=== PATIENT | female | born 1975 | race Caucasian/White ===

== ENCOUNTER → 2019-01-22 10:26 | Outpatient (CLI) | payer OTHER, SELFPAY ==
--- NOTE | 2019-01-22 | DI.MG.S_ITS ---
BILATERAL DIGITAL SCREENING MAMMOGRAM 3D/2D WITH CAD: 01/22/2019 CLINICAL: Routine screening. Comparison is made to exams dated: 12/25/2017 mammogram and 11/28/2016 mammogram - [facility]. There are scattered fibroglandular elements in both breasts. Current study was also evaluated with a Computer Aided Detection (CAD) system. No significant masses, calcifications, or other findings are seen in either breast. There has been no significant interval change. IMPRESSION: NEGATIVE There is no mammographic evidence of malignancy. A 1 year screening mammogram is recommended. This exam was interpreted at Station ID: [id number]. NOTE: For mammograms, a report in lay terms will be sent to the patient. Approximately 15% of breast malignancies will not be visualized mammographically. In the management of a palpable breast mass, a negative mammogram must not discourage biopsy of a clinically suspicious lesion. Electronically Signed By: Leonel field/jason:01/22/2019 13:21:22 letter sent: Normal Exam ACR BI-RADS Category 1: Negative [id number]
== END ==
PROVIDERS: PCP Family Medicine; Visit Provider Family Medicine
DX: Z12.31 Encounter for screening mammogram for malignant neoplasm of breast (principal)
CPT/HCPCS: 77063; 77067

== ENCOUNTER 2019-05-26 17:37 | Emergency (ER) | payer OTHER, SELFPAY ==
[2019-05-26 17:46] VITALS: BP 136/65; PULSE 82; RESP 17; TEMP 36.8; O2SAT 96
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
[2019-05-26] MEDS: ACETAMINOPHEN 325 MG TABLET 975 MG PO (18:49)
[2019-05-26 19:23] VITALS: BP 124/75; PULSE 75; RESP 16; TEMP 36.7; O2SAT 96
== END 2019-05-26 19:21 | disposition home or self-care (01) ==
PROVIDERS: Emergency Provider Emergency Medicine; PCP Family Medicine
DX: S16.1XXA Strain of muscle, fascia and tendon at neck level, initial encounter (principal); V89.2XXA Person injured in unspecified motor-vehicle accident, traffic, initial encounter
CPT/HCPCS: 71046; 72125; 99282; 99284

== ENCOUNTER → 2020-06-26 10:43 | Outpatient (CLI) | payer OTHER, SELFPAY ==
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
== END ==
PROVIDERS: PCP Family Medicine; Referring Provider Family Medicine; Visit Provider Chiropractor
DX: M16.0 Bilateral primary osteoarthritis of hip (principal); Z97.5 Presence of (intrauterine) contraceptive device
CPT/HCPCS: 73521

== ENCOUNTER → 2021-11-13 13:29 | Outpatient (CLI) | payer OTHER, SELFPAY ==
[2021-11-13 13:57] LABS: COVID19 -Nasal RAPID Negative (Negative)
== END ==
PROVIDERS: PCP Family Medicine; Visit Provider Physician Assistant
DX: Z20.822 Contact with and (suspected) exposure to COVID-19 (principal)
CPT/HCPCS: 87635

== ENCOUNTER → 2023-01-28 11:02 | Outpatient (CLI) | payer OTHER, SELFPAY ==
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
== END ==
PROVIDERS: PCP Physician Assistant; Referring Provider Physician Assistant; Visit Provider Physician Assistant
DX: M25.461 Effusion, right knee (principal); S83.271A Complex tear of lateral meniscus, current injury, right knee, initial encounter; S83.241A Other tear of medial meniscus, current injury, right knee, initial encounter; M71.21 Synovial cyst of popliteal space [Baker], right knee; M25.561 Pain in right knee
CPT/HCPCS: 73721

== ENCOUNTER 2023-03-01 20:16 | Inpatient (IN) | payer OTHER, MEDICAID, SELFPAY ==
[2023-03-01 20:17] VITALS: BP 123/95; PULSE 125; RESP 15; TEMP 36.3; O2SAT 97; BMI 40.4
[2023-03-01] MEDS: ONDANSETRON 4 MG/2 ML INJ IV (20:31)
[2023-03-01 21:02] LABS: Add Manual Diff / Slide Review NO; Alanine Aminotransferase 55 IU/L (<35); Albumin 4.5 g/dL (3.5-5.0); Albumin Globulin Ratio 1.3 (1.0-2.8); Alkaline Phosphatase 69 U/L (38-126); Aspartate Aminotransferase 37 IU/L (14-36); BUN Creatinine Ratio 22.5 (6-22); Basophils Absolute Auto 100 /uL (0-100); Basophils Percent Auto 0.5 % (0-2); Bilirubin Total 0.8 mg/dL (0.2-1.3); Blood Urea Nitrogen 16 mg/dL (7-17); Calcium 8.8 mg/dL (8.4-10.2); Chloride 105 mmol/L (98-107); Eosinophils Absolute Auto 0 /uL (0-450); Eosinophils Percent Auto 0.2 % (2-4); Estimated Glomerular Filt Rate > 60 mL/min (>60); Globulin 3.4 g/dL (1.7-4.1); Glucose 154 mg/dL (70-100); HEMOLYSIS < 15 (0-50); Hematocrit 47.4 % (36-46); Hemoglobin 16.1 g/dL (12.0-16.0); Lipase 69 U/L (23-300); Lymphocytes Absolute Auto 400 /uL (1100-4500); Lymphocytes Percent Auto 3.7 % (25-40); Mean Corpuscular HGB Conc 33.9 % (30-36); Mean Corpuscular Hemoglobin 29.4 PG (26-34); Mean Corpuscular Volume 86.7 fL (80-100); Monocytes Absolute Auto 700 /uL (0-900); Monocytes Percent Auto 6.5 % (3-14); Neutrophils Absolute Auto 9700 /uL (1500-7000); Neutrophils Percent Auto 89.1 % (50-75); Platelet Count 212 X10^3/uL (150-400); Red Blood Cell Count 5.46 X10^6/uL (4.0-5.2); Red Cell Distribution Width 13.1 % (11.6-14.8); Sodium 136 mmol/L (137-145); Total Protein 7.9 g/dL (6.3-8.2); White Blood Cell Count 10.9 X10^3/uL (4.5-11.0)
[2023-03-01 21:12] LABS: Carbon Dioxide 6 mmol/L (22-32)
[2023-03-01] MEDS: PANTOPRAZOLE 40 MG VIAL IV (21:30)
[2023-03-01] MEDS: METOCLOPRAMIDE 10 MG/2 ML INJ IV (21:30)
[2023-03-01 21:52] LABS: Pregnancy Test Serum,Qual Negative (Negative)
[2023-03-01 21:54] LABS: Ketones (Beta-Hydroxybutyrate) 5.94 mmol/L (<0.27)
[2023-03-01] MEDS: SODIUM CHLORIDE 0.9% 2,000 ML 1000 ML IV (22:00)
[2023-03-01 22:12] VITALS: PULSE 107; RESP 15; O2SAT 98
[2023-03-01 22:13] VITALS: BP 127/65; PULSE 104; RESP 21; O2SAT 98
[2023-03-01 22:30] VITALS: BP 132/64
[2023-03-01 23:00] VITALS: BP 126/61; PULSE 109; RESP 23; O2SAT 98
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
--- NOTE | 2023-03-01 23:05 | ED_ITS ---
HPI - Nausea/Vomiting/Diarrhea General Chief complaint: Abdominal Pain Stated complaint: Vomiting Time Seen by Provider: 03/01/23 21:27 Source: patient Mode of arrival: Ambulatory History of Present Illness HPI Narrative: Patient here with complains of abdominal pain nausea and vomiting for the past 3 days. Patient is insulin dependent diabetic. No history of DKA. Has been urinating the same out as he usually does. Can not stop vomiting though. Her blood sugar she states has been running in the 150s. No fever chills. No cough cold or congestion. Has diffuse abdominal pain. No diarrhea. No known sick contacts. Related Data Home Medications Medication Instructions Recorded Confirmed empagliflozin 10 mg tablet 10 mg PO DAILY 08/04/18 11/13/21 (Jardiance) glimepiride 4 mg tablet 4 mg PO QAM 08/04/18 11/13/21 levothyroxine 50 mcg capsule 50 mcg PO DAILY 08/04/18 11/13/21 lisinopril 40 mg tablet 40 mg PO DAILY 08/04/18 11/13/21 metformin 750 mg tablet,extended 2,250 mg PO QPM 08/04/18 11/13/21 release 24 hr verapamil 40 mg tablet 40 mg PO BID 08/04/18 11/13/21 Previous Rx's Medication Instructions Recorded methocarbamol 500 mg tablet 500 mg PO QIDP PRN #14 tabs 10/30/16 erythromycin 5 mg/gram (0.5 %) eye 1 cm EYE-LEFT Q8H #1 g 05/04/19 ointment Allergies Allergy/AdvReac Type Severity Reaction Status Date / Time bee venom protein (honey bee) Allergy Verified 03/01/23 20:22 Review of Systems Review of Systems Narrative: GENERAL: negative chills, fatigue, malaise, fever, sweats. HEENT: negative sinus pain, ear pain, sore throat RESPIRATORY: negative dyspnea, cough CARDIOVASCULAR: negative chest pain, palpitations GASTROINTESTINAL: Positive nausea, vomiting, abdominal pain : negative dysuria, frequency, hematuria MUSCULOSKELETAL: negative muscle or bony pain SKIN: negative rash, skin lesions NEUROLOGIC: negative weakness, numbness ROS Unobtainable: All systems reviewed & are unremarkable except as noted in HPI and below Patient History Medical History Diabetes Hypertension Hypothyroid Upper respiratory infection Social History household members: spouse Smoking Status: Former smoker Smoking Status: Former smoker alcohol intake frequency: a few times a month Substance Use Type: marijuana Exam Narrative Exam Narrative: GENERAL: in no distress, not toxic not dyspneic HEAD: Normocephalic. EYES: Pupils equal round ENT: Mucous membranes moist. NECK: Trachea midline. CARDIOVASCULAR: Tachycardia but Regular rate and rhythm without murmurs RESPIRATORY: Clear to auscultation. Breath sounds equal bilaterally. No wheezes, rales, or rhonchi. GASTROINTESTINAL: Abdomen soft, non-tender, bowel sounds are present. No peritoneal signs. No CVA tenderness EXTREMITIES: No gross deformities. BACK: No flank tenderness. NEURO: AOx4. SKIN: Warm and dry PSYCH: Not anxious, is cooperative Initial Vital Signs Initial Vital Signs: Vital Signs Temperature 97.3 F L 03/01/23 20:17 Pulse Rate 125 H 03/01/23 20:17 Respiratory Rate 15 03/01/23 20:17 Blood Pressure 123/95 H 03/01/23 20:17 Pulse Oximetry 97 03/01/23 20:17 Oxygen Delivery Method Room Air 03/01/23 20:17 Course Orders Ordered: ED Orders 03/01/23 21:34 VBG [Venous Blood Gas] Stat 03/01/23 22:40 Ictotest Urine Stat Urinalysis and Microscopic Stat Urine Culture Stat 03/01/23 23:04 CT chest abd pel w con Stat 03/02/23 02:02 Respiratory Panel (Film Array) Stat Acetaminophen (Acetaminophen 325 Mg Tablet) 650 mg PO Q6H PRN PRN Reason: Fever/Mild Pain (1-3) Last Admin: 03/02/23 01:50 Dose: 650 mg Documented By: CHANDANA Dextrose (Dextrose 50 % In Water 25 Gm/50 Ml Syringe) 25 gm IV PRN PRN PRN Reason: Hypoglycemia Enoxaparin Sodium (Enoxaparin 40 Mg/0.4 Ml Syringe) 40 mg SUBCUT DAILY ABIMBOLA Dextrose/Sodium Chloride (Dextrose 5%-0.45% Ns) 1,000 mls @ 150 mls/hr IV CONT ABIMBOLA Last Admin: 03/02/23 01:09 Dose: 150 mls/hr Documented By: CHANDANA INSULIN DRIP PREMIX (Myxredlin Drip Premix) 100 unit in 100 mls @ 6 mls/hr IV TITRATE ABIMBOLA; Protocol Last Titration: 03/02/23 05:16 Dose: 2.2 ml/hr, 2.2 mls/hr Documented By: HERLINDA Co-signed By: EH Admin: 03/02/23 01:11 Dose: 6 ml/hr, 6 mls/hr Documented By: CHANDANA Co-signed By: DECLAN Ceftriaxone Sodium 1,000 mg/ (Sodium Chloride) 100 mls @ 200 mls/hr IV Q24H ABIMBOLA Last Infusion: 03/02/23 01:48 Dose: 0 mls/hr Documented By: Admin: 03/02/23 01:08 Dose: 200 mls/hr Documented By: CHANDANA Dextrose (D10w) 1,000 mls @ 110 mls/hr IV CONT ABIMBOLA Last Admin: 03/02/23 05:19 Dose: 110 mls/hr Documented By: HERLINDA POTASSIUM CHLORIDE IN WATER (Potassium Cl 10 Meq/100 Ml Ade) 10 meq in 100 mls @ 100 mls/hr IV Q1H ABIMBOLA Stop: 03/02/23 07:14 Last Admin: 03/02/23 05:59 Dose: 100 mls/hr Documented By: HERLINDA Naloxone HCl (Naloxone 0.4 Mg/Ml Vial) 0.2 mg IV Q2MIN PRN PRN Reason: Opiate Reversal Ondansetron HCl (Ondansetron 4 Mg/2 Ml Inj) 4 mg IV Q8HR PRN PRN Reason: Nausea And Vomiting Discontinued Medications Sodium Chloride (Normal Saline 0.9%) 2,000 mls @ 1,000 mls/hr IV BOLUS ONE Stop: 03/02/23 01:03 Last Infusion: 03/02/23 00:19 Dose: 0 mls/hr Documented By: Admin: 03/01/23 22:00 Dose: 1,000 mls/hr Documented By: SHILO Insulin Human Regular (Insulin Regular 100 Unit/Ml 3 Ml Vial) 5 unit IV NOW ONE Stop: 03/02/23 03:35 Last Admin: 03/02/23 05:59 Dose: Not Given Documented By: EH Metoclopramide HCl (Metoclopramide 10 Mg/2 Ml Inj) 10 mg IV NOW ONE Stop: 03/01/23 21:19 Last Admin: 03/01/23 21:30 Dose: 10 mg Documented By: BS Ondansetron HCl (Ondansetron 4 Mg/2 Ml Inj) 4 mg IV NOW PRN PRN Reason: Nausea And Vomiting Last Admin: 03/01/23 20:31 Dose: 4 mg Documented By: KEVIN Pantoprazole Sodium (Pantoprazole 40 Mg Vial) 40 mg IV NOW ONE Stop: 03/01/23 21:20 Last Admin: 03/01/23 21:30 Dose: 40 mg Documented By: SHILO Vital Signs Vital signs: Vital Signs - 8 hr 03/01/23 22:12 03/01/23 22:13 03/01/23 22:13 Pulse Rate 107 H 104 H Respiratory Rate 15 21 Blood Pressure 127/65 Pulse Oximetry 98 98 03/01/23 22:30 03/01/23 23:00 03/01/23 23:00 Pulse Rate 109 H Respiratory Rate 23 Blood Pressure 132/64 126/61 Pulse Oximetry 98 03/01/23 23:30 Pulse Rate 114 H Respiratory Rate 22 Blood Pressure Pulse Oximetry 97 MDM - Nausea/Vomiting/Diarrhea Lab Data 03/01/23 20:40 03/02/23 03:52 Labs: Lab Results 03/01/23 03/01/23 03/01/23 Range/Units 20:40 20:40 20:40 WBC 10.9 (4.5-11.0) X10^3/uL RBC 5.46 H (4.0-5.2) X10^6/uL Hgb 16.1 H (12.0-16.0) g/dL Hct 47.4 H (36-46) % MCV 86.7 (80-100) fL MCH 29.4 (26-34) PG MCHC 33.9 (30-36) % RDW 13.1 (11.6-14.8) % Plt Count 212 (150-400) X10^3/uL Neut % (Auto) 89.1 H (50-75) % Lymph % (Auto) 3.7 L (25-40) % [place] % (Auto) 6.5 (3-14) % Eos % (Auto) 0.2 L (2-4) % Baso % (Auto) 0.5 (0-2) % Neut # (Auto) 9700 H (9293-0356) /uL Lymph # (Auto) 400 L (2898-1953) /uL [place] # (Auto) 700 (0-900) /uL Eos # (Auto) 0 (0-450) /uL Baso # (Auto) 100 (0-100) /uL VBG pH (7.33-7.43) VBG pCO2 (45-50) mmHg VBG pO2 (35-45) mmHg VBG HCO3 (24-28) mmol/L VBG Total CO2 (24-29) mmol/L VBG O2 Saturation (70-75) % VBG Base Excess (0-4) mmol/L FiO2 Sodium 136 L (137-145) mmol/L Potassium 4.0 (3.4-5.1) mmol/L Chloride 105 (98-107) mmol/L Carbon Dioxide 6 L* (22-32) mmol/L BUN 16 (7-17) mg/dL Creatinine 0.71 (0.52-1.04) mg/dL Estimated GFR > 60 (>60) mL/min BUN/Creatinine Ratio 22.5 H (6-22) Glucose 154 H (70-100) mg/dL Calcium 8.8 (8.4-10.2) mg/dL Total Bilirubin 0.8 (0.2-1.3) mg/dL AST 37 H (14-36) IU/L ALT 55 H (<35) IU/L Alkaline Phosphatase 69 (38-126) U/L Total Protein 7.9 (6.3-8.2) g/dL Albumin 4.5 (3.5-5.0) g/dL Globulin 3.4 (1.7-4.1) g/dL Albumin/Globulin Ratio 1.3 (1.0-2.8) Lipase 69 (23-300) U/L Serum , Qual (Negative) Urine Color Urine Appearance Urine pH (4.5-8.0) Ur Specific [place] (1.000-1.035) Urine Protein (Negative) Urine Glucose (UA) (Negative) g/dL Urine Ketones (NEGATIVE) Urine Occult Blood (Negative) Urine Nitrate (Negative) Urine Bilirubin (NEGATIVE) Ur Bilirubin Confirm (Negative) Urine Urobilinogen (0.2) E.U./dL Ur Leukocyte Esterase (NEGATIVE) Urine RBC (0-5/HPF) Urine WBC (0-5/HPF) Ur Squamous Epith Cells (0-5/HPF) Ur Transition Epith Cell (0-5/HPF) Ur Renal Epithelial Cell Calcium Oxalate Crystal Uric Acid Crystals Triple Phos Crystals Other Crystals Amorphous Sediment Urine Bacteria (None) Hyaline Casts Granular Casts RBC Casts WBC Casts Other Casts Urine Mucus Urine Trichomonas Urine Yeast (None) Urine Sperm Ur Culture Indicated? Micro UA Comment Ketones 5.94 H (<0.27) mmol/L Chlamy pneumoniae PCR (Not Detect) Adenovirus (PCR) (Not Detect) B. pertussis DNA (PCR) (Not Detecte) B.parapertussis DNA PCR (Not Detecte) Coronavirus OC43 (PCR) (Not Detect) Coronavirus HKU1 (PCR) (Not Detect) Coronavirus 229E (PCR) (Not Detect) SARS-CoV-2 (PCR) (Not Detecte) Coronavirus NL63 (PCR) (Not Detect) Human Metapneumovir PCR (Not Detect) Influenza Type A (PCR) (Not Detect) Influenza Type B (PCR) (Not Detect) M. pneumoniae (PCR) (Not Detect) Parainfluenza 1 (PCR) (Not Detect) Parainfluenza 2 (PCR) (Not Detect) Parainfluenza 3 (PCR) (Not Detect) Parainfluenza 4 (PCR) (Not Detect) RSV (PCR) (Not Detect) Entero/Rhino (PCR) (Not Detect) 03/01/23 03/01/23 03/01/23 Range/Units 20:40 21:34 22:40 WBC (4.5-11.0) X10^3/uL RBC (4.0-5.2) X10^6/uL Hgb (12.0-16.0) g/dL Hct (36-46) % MCV (80-100) fL MCH (26-34) PG MCHC (30-36) % RDW (11.6-14.8) % Plt Count (150-400) X10^3/uL Neut % (Auto) (50-75) % Lymph % (Auto) (25-40) % [place] % (Auto) (3-14) % Eos % (Auto) (2-4) % Baso % (Auto) (0-2) % Neut # (Auto) (0840-2939) /uL Lymph # (Auto) (6504-0726) /uL [place] # (Auto) (0-900) /uL Eos # (Auto) (0-450) /uL Baso # (Auto) (0-100) /uL VBG pH 7.23 L (7.33-7.43) VBG pCO2 34.0 L (45-50) mmHg VBG pO2 26 L (35-45) mmHg VBG HCO3 14 L (24-28) mmol/L VBG Total CO2 15 L (24-29) mmol/L VBG O2 Saturation 39 L (70-75) % VBG Base Excess -13.0 L (0-4) mmol/L FiO2 21 Sodium (137-145) mmol/L Potassium (3.4-5.1) mmol/L Chloride (98-107) mmol/L Carbon Dioxide (22-32) mmol/L BUN (7-17) mg/dL Creatinine (0.52-1.04) mg/dL Estimated GFR (>60) mL/min BUN/Creatinine Ratio (6-22) Glucose (70-100) mg/dL Calcium (8.4-10.2) mg/dL Total Bilirubin (0.2-1.3) mg/dL AST (14-36) IU/L ALT (<35) IU/L Alkaline Phosphatase (38-126) U/L Total Protein (6.3-8.2) g/dL Albumin (3.5-5.0) g/dL Globulin (1.7-4.1) g/dL Albumin/Globulin Ratio (1.0-2.8) Lipase (23-300) U/L Serum , Qual Negative (Negative) Urine Color Yellow Urine Appearance Clear Urine pH 5.5 (4.5-8.0) Ur Specific [place] >=1.030 H (1.000-1.035) Urine Protein Trace H (Negative) Urine Glucose (UA) 2+ H (Negative) g/dL Urine Ketones 3+ H (NEGATIVE) Urine Occult Blood Negative (Negative) Urine Nitrate Negative (Negative) Urine Bilirubin 1+ H (NEGATIVE) Ur Bilirubin Confirm Negative (Negative) Urine Urobilinogen 0.2 (0.2) E.U./dL Ur Leukocyte Esterase Negative (NEGATIVE) Urine RBC None seen (0-5/HPF) Urine WBC 5-10/hpf H (0-5/HPF) Ur Squamous Epith Cells 5-10 /hpf H (0-5/HPF) Ur Transition Epith Cell 1-5/hpf (0-5/HPF) Ur Renal Epithelial Cell Calcium Oxalate Crystal Uric Acid Crystals Triple Phos Crystals Other Crystals Amorphous Sediment Urine Bacteria Moderate (10-30) H (None) Hyaline Casts Granular Casts RBC Casts WBC Casts Other Casts Urine Mucus Urine Trichomonas Urine Yeast 5-10/hpf H (None) Urine Sperm Ur Culture Indicated? Specimen cultured Micro UA Comment Ketones (<0.27) mmol/L Chlamy pneumoniae PCR (Not Detect) Adenovirus (PCR) (Not Detect) B. pertussis DNA (PCR) (Not Detecte) B.parapertussis DNA PCR (Not Detecte) Coronavirus OC43 (PCR) (Not Detect) Coronavirus HKU1 (PCR) (Not Detect) Coronavirus 229E (PCR) (Not Detect) SARS-CoV-2 (PCR) (Not Detecte) Coronavirus NL63 (PCR) (Not Detect) Human Metapneumovir PCR (Not Detect) Influenza Type A (PCR) (Not Detect) Influenza Type B (PCR) (Not Detect) M. pneumoniae (PCR) (Not Detect) Parainfluenza 1 (PCR) (Not Detect) Parainfluenza 2 (PCR) (Not Detect) Parainfluenza 3 (PCR) (Not Detect) Parainfluenza 4 (PCR) (Not Detect) RSV (PCR) (Not Detect) Entero/Rhino (PCR) (Not Detect) 03/01/23 03/01/23 Range/Units 22:40 22:40 WBC (4.5-11.0) X10^3/uL RBC (4.0-5.2) X10^6/uL Hgb (12.0-16.0) g/dL Hct (36-46) % MCV (80-100) fL MCH (26-34) PG MCHC (30-36) % RDW (11.6-14.8) % Plt Count (150-400) X10^3/uL Neut % (Auto) (50-75) % Lymph % (Auto) (25-40) % [place] % (Auto) (3-14) % Eos % (Auto) (2-4) % Baso % (Auto) (0-2) % Neut # (Auto) (1103-9469) /uL Lymph # (Auto) (3483-4493) /uL [place] # (Auto) (0-900) /uL Eos # (Auto) (0-450) /uL Baso # (Auto) (0-100) /uL VBG pH (7.33-7.43) VBG pCO2 (45-50) mmHg VBG pO2 (35-45) mmHg VBG HCO3 (24-28) mmol/L VBG Total CO2 (24-29) mmol/L VBG O2 Saturation (70-75) % VBG Base Excess (0-4) mmol/L FiO2 Sodium (137-145) mmol/L Potassium (3.4-5.1) mmol/L Chloride (98-107) mmol/L Carbon Dioxide (22-32) mmol/L BUN (7-17) mg/dL Creatinine (0.52-1.04) mg/dL Estimated GFR (>60) mL/min BUN/Creatinine Ratio (6-22) Glucose (70-100) mg/dL Calcium (8.4-10.2) mg/dL Total Bilirubin (0.2-1.3) mg/dL AST (14-36) IU/L ALT (<35) IU/L Alkaline Phosphatase (38-126) U/L Total Protein (6.3-8.2) g/dL Albumin (3.5-5.0) g/dL Globulin (1.7-4.1) g/dL Albumin/Globulin Ratio (1.0-2.8) Lipase (23-300) U/L Serum , Qual (Negative) Urine Color Urine Appearance Urine pH (4.5-8.0) Ur Specific [place] (1.000-1.035) Urine Protein (Negative) Urine Glucose (UA) (Negative) g/dL Urine Ketones (NEGATIVE) Urine Occult Blood (Negative) Urine Nitrate (Negative) Urine Bilirubin (NEGATIVE) Ur Bilirubin Confirm (Negative) Urine Urobilinogen (0.2) E.U./dL Ur Leukocyte Esterase (NEGATIVE) Urine RBC Cancelled (0-5/HPF) Urine WBC Cancelled (0-5/HPF) Ur Squamous Epith Cells Cancelled (0-5/HPF) Ur Transition Epith Cell Cancelled (0-5/HPF) Ur Renal Epithelial Cell Cancelled Calcium Oxalate Crystal Cancelled Uric Acid Crystals Cancelled Triple Phos Crystals Cancelled Other Crystals Cancelled Amorphous Sediment Cancelled Urine Bacteria Cancelled (None) Hyaline Casts Cancelled Granular Casts Cancelled RBC Casts Cancelled WBC Casts Cancelled Other Casts Cancelled Urine Mucus Cancelled Urine Trichomonas Cancelled Urine Yeast Cancelled (None) Urine Sperm Cancelled Ur Culture Indicated? Cancelled Micro UA Comment Cancelled Ketones (<0.27) mmol/L Chlamy pneumoniae PCR Not detected (Not Detect) Adenovirus (PCR) Not detected (Not Detect) B. pertussis DNA (PCR) Not detected (Not Detecte) B.parapertussis DNA PCR Not detected (Not Detecte) Coronavirus OC43 (PCR) Not detected (Not Detect) Coronavirus HKU1 (PCR) Not detected (Not Detect) Coronavirus 229E (PCR) Not detected (Not Detect) SARS-CoV-2 (PCR) Not detected (Not Detecte) Coronavirus NL63 (PCR) Not detected (Not Detect) Human Metapneumovir PCR Not detected (Not Detect) Influenza Type A (PCR) Not detected (Not Detect) Influenza Type B (PCR) Not detected (Not Detect) M. pneumoniae (PCR) Not detected (Not Detect) Parainfluenza 1 (PCR) Not detected (Not Detect) Parainfluenza 2 (PCR) Not detected (Not Detect) Parainfluenza 3 (PCR) Not detected (Not Detect) Parainfluenza 4 (PCR) Not detected (Not Detect) RSV (PCR) Not detected (Not Detect) Entero/Rhino (PCR) Not detected (Not Detect) Point of Care Testing Test Results Negative Glucose POC 188 Urine Dip Bedside Urine Glucose Negative Bedside Urine Bilirubin - Negative Bedside Urine Ketone +++ 80 Urine Specific [place] 1.03 Bedside Urine Occult Blood - Negative Bedside Urine pH 6 Bedside Urine Protein +/- 15 Bedside Urine Urobilinogen - Negative Bedside Urine Nitrite - Negative Bedside Urine Leukocytes - Negative Esterase Imaging Data CT chest abdomen pelvis: Radiologist's Impression: PROCEDURE:? CT CHEST ABD PEL W CON ? INDICATIONS:? Abdominal pain nausea and vomiting/DKA ? TECHNIQUE:? After the administration of intravenous contrast, axial sections acquired from the supraclavicular neck to the pubic symphysis.? Coronal and sagittal reformats were performed.? For radiation dose reduction, the following was used:? automated exposure control, adjustment of mA and/or kV according to patient size.? ? COMPARISON: ? [facility], CT, IVP (ABD & PEL WWO CONTRAST), 12/20/2016, 12:07. ? FINDINGS:? Image quality:? Excellent.? ? CHEST:? Lower Neck: No lymphadenopathy by size criteria. Thyroid:? Visualized thyroid demonstrates no discrete nodules. Axillae: No lymphadenopathy by size criteria. Chest Wall:? Unremarkable.? ? Lungs and Airways:? No acute consolidation.? No suspicious pulmonary nodules. The trachea and central airways are patent. Pleura: No pneumothorax or pleural effusions.? ? Heart: Heart size is normal.? No pericardial effusion. Thoracic Vessels: The aorta and pulmonary arteries are normal in size.? Mediastinum and [place]: No lymphadenopathy by size criteria. Esophagus: No wall thickening. No hiatal hernia. ? ABDOMEN: Liver:? There is diffuse hypoattenuation of the liver consistent with fatty infiltration. Gallbladder:? Within normal limits without calcified gallstones.? ? Biliary ducts:? No biliary ductal dilatation.? ? Pancreas:? Unremarkable.? ? Spleen:? Normal in size.? ? Adrenal Glands:? There are bilateral adrenal nodules, measuring up to 2.3 cm on the left and 1.8 cm on the right.? This appears slightly increased in size from 1.8 cm on the left on the prior study.? Kidneys and Ureters:? No hydronephrosis.? There are bilateral parapelvic renal cysts. ? ? Stomach and Bowel:? Stomach, small bowel loops, and colon are normal in caliber and wall thickness.? The appendix is normal.? There are a few colonic diverticula without acute diverticulitis.? Peritoneum:? No abnormal intraperitoneal fluid.? No free air.? ? Ventral Wall: ? No hernia.? Abdominal Nodes:? No retroperitoneal or mesenteric adenopathy by size criteria.? Vessels:? Aorta and inferior vena cava are normal in size.? ? PELVIS: Pelvic Organs:? An IUD is redemonstrated within the uterus.? ? Bladder:? Unremarkable.? ? Pelvic Nodes: No enlarged lymph nodes.? Miscellaneous: No inguinal hernias are seen. ? ? ? Bones:? Visualized osseous structures demonstrate no suspicious focal lesions. IMPRESSION:? ? 1.? No definite acute intra-abdominal abnormality. ? 2.? Specifically, no evidence of bowel obstruction. ? 3.? Hepatic steatosis without discrete hepatic mass identified. ? [facility] Narrative Medical decision making narrative: Patient here with complains of abdominal pain nausea and vomiting for the past 3 days. Patient is insulin dependent diabetic. No history of DKA. Has been urinating the same out as he usually does. Can not stop vomiting though. Her blood sugar she states has been running in the 150s. No fever chills. No cough cold or congestion. Has diffuse abdominal pain. No diarrhea. No known sick contacts. After history and exam CBC CMP lipase normal saline Zofran Reglan ketones urinalysis CT abdomen pelvis viral panel VBG MDM CC: Nausea vomiting abdominal pain Complicating co-morbidities: Diabetes Data collected from: Patient and Medical records reviewed: No previous visits here for this complaint Differential considered: Includes but not limited to DKA/viral syndrome/colitis/gastroenteritis Exam documented above, pertinent findings include: Nontender abdomen Lab Test results independently reviewed as above. Pertinent findings: WBC 10.9 hemoglobin 16 sodium 136 potassium 4.0 bicarb 6, GFR greater than 60 BUN 16 creatinine 0.71 ketones 5.94 Glucose 154 VBG shows pH 7.23 pCO2 34 PO2 26 CO2 15 EKG sinus tachycardia rate [address] elevation or depression Imaging studies independently reviewed: CT chest abdomen pelvis no acute finding Consultations: 12:00 a.m.. Spoke with hospitalist dr langley, he will admit patient Treatments: Normal saline Zofran Reglan, no insulin indicated at this time given glucose levels Re-evaluations: 11:10 p.m.. Patient doing much better. No nausea or vomiting. She does understand and as well admission, likely early DKA. Discussion: Appropriate for admission for possible early DKA. Patient responding to IV fluids as well as antiemetics. Patient not requiring IV insulin at this time. Diagnosis: DKA Discharge Plan Departure Patient Disposition: Admitted as Observation Clinical Impression: DKA, type 1 Admit Date/Time: 03/01/23 23:54 Admit Provider: Marky Trevizo
[2023-03-01 23:26] LABS: Appearance Urine UA CLEAR; Bilirubin Urine UA 1+ (NEGATIVE); Color Urine UA YELLOW; Glucose Urine UA 2+ g/dL (Negative); Ketones Urine UA 3+ (NEGATIVE); Leukocyte Esterase Urine UA NEGATIVE (NEGATIVE); Nitrite Urine UA NEGATIVE (Negative); Occult Blood Urine UA NEGATIVE (Negative); Protein Urine UA TRACE (Negative); Specific Gravity Urine UA >=1.030 (1.000-1.035); Urobilinogen Urine UA 0.2 E.U./dL (0.2)
[2023-03-01 23:28] LABS: Ictotest Urine Negative (Negative); pH Urine UA 5.5 (4.5-8.0)
[2023-03-01 23:30] VITALS: PULSE 114; RESP 22; O2SAT 97
[2023-03-01 23:37] LABS: Bacteria Urine Moderate (10-30); Culture Indicated Urine Specimen Cultured; RBC Urine None Seen (0-5/HPF); Squamous Epithelial Cell Urine 5-10 /HPF (0-5/HPF); Transitional Epi Cells Urine 1-5/HPF (0-5/HPF); WBC Urine 5-10/HPF (0-5/HPF)
[2023-03-01 23:47] LABS: HCO3 VBG 14 mmol/L (24-28); PO2 VBG 26 mmHg (35-45); pH VBG 7.23 (7.33-7.43)
[2023-03-01 23:48] LABS: Fractionated Inspired Oxygen 21; Oxygen Saturation VBG 39 % (70-75); Total CO2 VBG 15 mmol/L (24-29)
[2023-03-02] VITALS (54 sets, daily range): BP systolic 87–143; BP diastolic 54–101; PULSE 85–129; RESP 11–34; TEMP 36.1–37.3; O2SAT 92–98; BMI 40.5
[2023-03-02] MEDS: cefTRIAXone 1,000 MG in SODIUM CHLORIDE 0.9% 100 ML 200 MG IV ×2 (01:08→23:53)
[2023-03-02] MEDS: DEXTROSE 5%-0.45% NS 1,000 ML 150 ML IV (01:09)
[2023-03-02] MEDS: INSULIN DRIP PREMIX 100 UNIT/100 ML PLAST..BAG 6 UNIT IV (01:11)
--- NOTE | 2023-03-02 01:13 | P.HP_ITS ---
History of Present Illness History of Present Illness Date Patient Seen: 03/02/23 Time Patient Seen: 00:30 Chief complaint: Vomiting Narrative: Ms. Cartagena is a 47W with PMH DM, hypothyroidism who presents to the hospital with nausea and vomiting. She was started on ozempic a few months ago, her dose was just increased. She took her last dose Monday. That day she thinks she developed food poisoning because both she and her had nausea and vomiting. Her symptoms have continued. She has monitored her blood sugars and they have been in the 150s. No diarrhea. No cough, shortness of breath, chest pain. No dysuria. In the ED workup was done, vitals notable for afebrile heart rate 120s, blood pressure 120s/90s. Sats 97% on room air. Labs reviewed by me and notable for WBC 10.9, hgb 16.1. Na 136, co2 6, creatinine 0.71. Ketones 5.94. UA with bacteria and wbcs, but also squamous epithelial cells. CT abdomen/pelvis reviewed by me and notable for no acute process. She was ordered for IV fluids. She was admitted for further treatment of her DKA. [facility] Medical History Diabetes Hypertension Hypothyroid Upper respiratory infection Social History Smoking Status: Former smoker Meds Home Medications and Allergies Home Medications Medication Instructions Recorded Confirmed Type methocarbamol 500 mg tablet 500 mg PO QIDP PRN #14 tabs 10/30/16 11/13/21 Rx empagliflozin 10 mg tablet 10 mg PO DAILY 08/04/18 11/13/21 History (Jardiance) glimepiride 4 mg tablet 4 mg PO QAM 08/04/18 11/13/21 History levothyroxine 50 mcg capsule 50 mcg PO DAILY 08/04/18 11/13/21 History lisinopril 40 mg tablet 40 mg PO DAILY 08/04/18 11/13/21 History metformin 750 mg tablet,extended 2,250 mg PO QPM 08/04/18 11/13/21 History release 24 hr verapamil 40 mg tablet 40 mg PO BID 08/04/18 11/13/21 History erythromycin 5 mg/gram (0.5 %) eye 1 cm EYE-LEFT Q8H #1 g 05/04/19 11/13/21 Rx ointment Allergies Allergy/AdvReac Type Severity Reaction Status Date / Time bee venom protein (honey bee) Allergy Verified 03/01/23 20:22 Review of Systems Review of Systems Narrative: 14 systems reviewed and negative aside from what is noted in HPI Exam Vital Signs (past 8 hours): - 03/01/23 20:17 03/01/23 22:12 03/01/23 22:13 Temperature 97.3 F L Pulse Rate 125 H 107 H 104 H Respiratory Rate 15 15 21 Blood Pressure 123/95 H Pulse Oximetry 97 98 98 Oxygen Delivery Method Room Air 03/01/23 22:13 03/01/23 22:30 03/01/23 23:00 Temperature Pulse Rate Respiratory Rate Blood Pressure 127/65 132/64 126/61 Pulse Oximetry Oxygen Delivery Method 03/01/23 23:00 03/01/23 23:30 Temperature Pulse Rate 109 H 114 H Respiratory Rate 23 22 Blood Pressure Pulse Oximetry 98 97 Oxygen Delivery Method Oxygen Delivery Method Room Air Narrative Exam Narrative: GEN: no acute distress HEENT: dry mucous membranes, PERRL NECK: trachea midline, no jvd PULM: clear bilaterally, no wheezes, rhonchi, rales CV: tachycardic, no murmurs ABD: soft, nontender, nondisnteded, no organomegaly EXT: warm and well perfused with no edema NEURO: awake, alert, oriented, no focal deficits Objective Labs 03/01/23 20:40 03/01/23 20:40 Labs: Laboratory Results - last 24 hr 03/01/23 03/01/23 03/01/23 20:40 20:40 20:40 WBC 10.9 RBC 5.46 H Hgb 16.1 H Hct 47.4 H MCV 86.7 MCH 29.4 MCHC 33.9 RDW 13.1 Plt Count 212 Neut % (Auto) 89.1 H Lymph % (Auto) 3.7 L [place] % (Auto) 6.5 Eos % (Auto) 0.2 L Baso % (Auto) 0.5 Neut # (Auto) 9700 H Lymph # (Auto) 400 L [place] # (Auto) 700 Eos # (Auto) 0 Baso # (Auto) 100 VBG pH VBG pCO2 VBG pO2 VBG HCO3 VBG Total CO2 VBG O2 Saturation VBG Base Excess FiO2 Sodium 136 L Potassium 4.0 Chloride 105 Carbon Dioxide 6 L* BUN 16 Creatinine 0.71 Estimated GFR > 60 BUN/Creatinine Ratio 22.5 H Glucose 154 H Calcium 8.8 Total Bilirubin 0.8 AST 37 H ALT 55 H Alkaline Phosphatase 69 Total Protein 7.9 Albumin 4.5 Globulin 3.4 Albumin/Globulin Ratio 1.3 Lipase 69 Serum , Qual Urine Color Urine Appearance Urine pH Ur Specific [place] Urine Protein Urine Glucose (UA) Urine Ketones Urine Occult Blood Urine Nitrate Urine Bilirubin Ur Bilirubin Confirm Urine Urobilinogen Ur Leukocyte Esterase Urine RBC Urine WBC Ur Squamous Epith Cells Ur Transition Epith Cell Ur Renal Epithelial Cell Calcium Oxalate Crystal Uric Acid Crystals Triple Phos Crystals Other Crystals Amorphous Sediment Urine Bacteria Hyaline Casts Granular Casts RBC Casts WBC Casts Other Casts Urine Mucus Urine Trichomonas Urine Yeast Urine Sperm Ur Culture Indicated? Micro UA Comment Ketones 5.94 H 03/01/23 03/01/23 03/01/23 20:40 21:34 22:40 WBC RBC Hgb Hct MCV MCH MCHC RDW Plt Count Neut % (Auto) Lymph % (Auto) [place] % (Auto) Eos % (Auto) Baso % (Auto) Neut # (Auto) Lymph # (Auto) [place] # (Auto) Eos # (Auto) Baso # (Auto) VBG pH 7.23 L VBG pCO2 34.0 L VBG pO2 26 L VBG HCO3 14 L VBG Total CO2 15 L VBG O2 Saturation 39 L VBG Base Excess -13.0 L FiO2 21 Sodium Potassium Chloride Carbon Dioxide BUN Creatinine Estimated GFR BUN/Creatinine Ratio Glucose Calcium Total Bilirubin AST ALT Alkaline Phosphatase Total Protein Albumin Globulin Albumin/Globulin Ratio Lipase Serum , Qual Negative Urine Color Yellow Urine Appearance Clear Urine pH 5.5 Ur Specific [place] >=1.030 H Urine Protein Trace H Urine Glucose (UA) 2+ H Urine Ketones 3+ H Urine Occult Blood Negative Urine Nitrate Negative Urine Bilirubin 1+ H Ur Bilirubin Confirm Negative Urine Urobilinogen 0.2 Ur Leukocyte Esterase Negative Urine RBC None seen Urine WBC 5-10/hpf H Ur Squamous Epith Cells 5-10 /hpf H Ur Transition Epith Cell 1-5/hpf Ur Renal Epithelial Cell Calcium Oxalate Crystal Uric Acid Crystals Triple Phos Crystals Other Crystals Amorphous Sediment Urine Bacteria Moderate (10-30) H Hyaline Casts Granular Casts RBC Casts WBC Casts Other Casts Urine Mucus Urine Trichomonas Urine Yeast 5-10/hpf H Urine Sperm Ur Culture Indicated? Specimen cultured Micro UA Comment Ketones 03/01/23 22:40 WBC RBC Hgb Hct MCV MCH MCHC RDW Plt Count Neut % (Auto) Lymph % (Auto) [place] % (Auto) Eos % (Auto) Baso % (Auto) Neut # (Auto) Lymph # (Auto) [place] # (Auto) Eos # (Auto) Baso # (Auto) VBG pH VBG pCO2 VBG pO2 VBG HCO3 VBG Total CO2 VBG O2 Saturation VBG Base Excess FiO2 Sodium Potassium Chloride Carbon Dioxide BUN Creatinine Estimated GFR BUN/Creatinine Ratio Glucose Calcium Total Bilirubin AST ALT Alkaline Phosphatase Total Protein Albumin Globulin Albumin/Globulin Ratio Lipase Serum , Qual Urine Color Urine Appearance Urine pH Ur Specific [place] Urine Protein Urine Glucose (UA) Urine Ketones Urine Occult Blood Urine Nitrate Urine Bilirubin Ur Bilirubin Confirm Urine Urobilinogen Ur Leukocyte Esterase Urine RBC Cancelled Urine WBC Cancelled Ur Squamous Epith Cells Cancelled Ur Transition Epith Cell Cancelled Ur Renal Epithelial Cell Cancelled Calcium Oxalate Crystal Cancelled Uric Acid Crystals Cancelled Triple Phos Crystals Cancelled Other Crystals Cancelled Amorphous Sediment Cancelled Urine Bacteria Cancelled Hyaline Casts Cancelled Granular Casts Cancelled RBC Casts Cancelled WBC Casts Cancelled Other Casts Cancelled Urine Mucus Cancelled Urine Trichomonas Cancelled Urine Yeast Cancelled Urine Sperm Cancelled Ur Culture Indicated? Cancelled Micro UA Comment Cancelled Ketones Assessment & Plan Assessment & Plan narrative: 1. Euglycemic DKA -patient noted to be in DKA, with acidosis, elevated anion gap, low bicarb, glucose is near normal -ketones are elevated -suspect she has euglycemic dka in setting of using sglt2 med (ozempic) -hold oral diabetic medications -last dose of ozempic was 02/26 -ordered insulin gtt, and d51/2ns, follow dka protocol -trend bmp q4h -npo for now 2. Possible UTI -UA showed positive bacteria, but also squamous epithelial cells so may be contaminant -for now ordered ceftriaxone -follow up urine culture 3. Hypothyroidism -continue synthroid 4. Hypertension -hold anti-hypertensives I have discussed plan and obtained history from the patient. I have discussed p jarrett of care with ED physician and bedside nurse. I have reviewed labs, imaging. CODE: Full Proxy: Leonel Clay,
[2023-03-02] MEDS: ACETAMINOPHEN 325 MG TABLET 650 MG PO ×4 (01:50→20:56)
[2023-03-02 03:11] LABS: Adenovirus Not Detected (Not Detect); B. parapertussis Not Detected (Not Detecte); Bordetella pertussis Not Detected (Not Detecte); Chlamydophila pneumoniae Not Detected (Not Detect); Coronavirus 229E Not Detected (Not Detect); Coronavirus HKU1 Not Detected (Not Detect); Coronavirus NL 63 Not Detected (Not Detect); Coronavirus OC43 Not Detected (Not Detect); Human Metapneumovirus Not Detected (Not Detect); Human Rhinovirus/Enterovirus Not Detected (Not Detect); Influenza A Not Detected (Not Detect); Influenza B Not Detected (Not Detect); Mycoplasma pneumoniae Not Detected (Not Detect); Parainfluenza Virus 1 Not Detected (Not Detect); Parainfluenza Virus 2 Not Detected (Not Detect); Parainfluenza Virus 3 Not Detected (Not Detect); Parainfluenza Virus 4 Not Detected (Not Detect); Respiratory Syncytial Virus Not Detected (Not Detect); SARS- CoV-2 Not Detected (Not Detecte)
[2023-03-02 04:41] LABS: Blood Urea Nitrogen 14 mg/dL (7-17); Calcium 7.9 mg/dL (8.4-10.2); Carbon Dioxide 11 mmol/L (22-32); Chloride 109 mmol/L (98-107); Estimated Glomerular Filt Rate > 60 mL/min (>60); Glucose 150 mg/dL (70-100); HEMOLYSIS < 15 (0-50); Sodium 137 mmol/L (137-145)
[2023-03-02] MEDS: DEXTROSE 10 % IN WATER 1,000 ML 110 ML IV ×2 (05:19→06:08)
[2023-03-02] MEDS: POTASSIUM CHLORIDE IN WATER 10 MEQ/100 ML PIGGYBACK 100 MEQ IV ×12 (05:59→22:48)
[2023-03-02] MEDS: ONDANSETRON 4 MG/2 ML INJ IV (08:19)
[2023-03-02 08:37] LABS: Hematocrit 42.6 % (36-46); Hemoglobin 14.3 g/dL (12.0-16.0); Mean Corpuscular HGB Conc 33.5 % (30-36); Mean Corpuscular Hemoglobin 29.1 PG (26-34); Mean Corpuscular Volume 86.9 fL (80-100); Platelet Count 209 X10^3/uL (150-400); Red Cell Distribution Width 13.3 % (11.6-14.8); White Blood Cell Count 9.2 X10^3/uL (4.5-11.0)
[2023-03-02 08:49] LABS: BUN Creatinine Ratio 21.3 (6-22); Blood Urea Nitrogen 13 mg/dL (7-17); Calcium 7.7 mg/dL (8.4-10.2); Carbon Dioxide 12 mmol/L (22-32); Chloride 107 mmol/L (98-107); Estimated Glomerular Filt Rate > 60 mL/min (>60); Glucose 154 mg/dL (70-100); HEMOLYSIS < 15 (0-50); Potassium 4.1 mmol/L (3.4-5.1); Sodium 133 mmol/L (137-145)
[2023-03-02] MEDS: ENOXAPARIN 40 MG/0.4 ML SYRINGE SUBCUT ×2 (09:22→20:49)
[2023-03-02] MEDS: FLUoxetine 20 MG CAPSULE PO (09:48)
[2023-03-02] MEDS: PANTOPRAZOLE DR 40 MG TABLET PO (09:48)
[2023-03-02] MEDS: LEVOTHYROXINE 50 MCG TABLET PO (09:51)
[2023-03-02] MEDS: DEXTROSE 5%-0.45% NS 1,000 ML 165 ML IV (10:00)
--- NOTE | 2023-03-02 10:47 | CM.DANOTE ---
DCP: Case received, EMR reviewed and met with patient. Introduced self and role. Completed DCP assessment based upon information currently available. Patient is a 47 year old female who admitted yesterday evening to the care of the hospitalist team. PCP: Dr. Wheeler ([facility]). Payer: confirmed: [facility]/Medicaid. Patient came to the hospital via private vehicle secondary to having abdominal pain and vomiting for the last 3 days. Patient is an insulin dependent diabetic, notes indicate no history of DKA. Patient is being given IV fluids and antiemetics. Patient had recently started Ozempic. Patient was diagnosed with euglycemic DKA, and possible UTI. Met with patient in her room, she had been vomiting earlier. She is now sitting up her chair. Patient is alert and oriented, and confirmed that she lives in [place] with spouse, and son. She goes to [facility] for her primary care needs, and is independent at baseline, is self employed. P: DCP to continue to follow. Plan is home when deemed medically stable. Magalis Boyd RN/Launch Manager Discharge Planning/Care Management CM Discharge Assessment Start: 03/02/23 10:41 Freq: Status: Active Protocol: Document 03/02/23 10:41 (Rec: 03/02/23 10:42 [id number]) Discharge Planning Assessment Assigned [employer] Magalis Boyd RN/Launch Manager Advance Directives? No History Provided By Patient,Medical Record Prior Living Arrangements House Household Members spouse Type of transporation used prior to Drives own vehicle admit Independent with ADL's Yes Is patient alert and oriented? Yes Barriers to Discharge No Discharge Plan Home Transportation Arrangement Family Referrals Initiated None needed Whiteboard Updated in Patient Room with Yes name and ext. # of [employer] History Teacher Review Status In Process Next Review Type Continued Stay Review
[2023-03-02] MEDS: SUMAtriptan 6 MG/0.5 ML VIAL SUBCUT (11:07)
[2023-03-02 13:10] LABS: BUN Creatinine Ratio 20.4 (6-22); Blood Urea Nitrogen 11 mg/dL (7-17); Calcium 7.6 mg/dL (8.4-10.2); Carbon Dioxide 13 mmol/L (22-32); Chloride 107 mmol/L (98-107); Estimated Glomerular Filt Rate > 60 mL/min (>60); Glucose 161 mg/dL (70-100); HEMOLYSIS < 15 (0-50); Potassium 3.8 mmol/L (3.4-5.1); Sodium 133 mmol/L (137-145)
--- NOTE | 2023-03-02 14:47 | P.PN_ITS ---
Subjective Subjective Interval history: Continues to have mild nausea today, gap closed but acidosis persists. Remains on insulin infusion this afternoon. Exam Vital Signs (past 8 hours): - 03/02/23 07:00 03/02/23 07:00 03/02/23 08:00 Temperature 99.2 F Pulse Rate 97 H Respiratory Rate 12 Blood Pressure 103/54 L Pulse Oximetry Oxygen Flow Rate 03/02/23 07:30 03/02/23 08:00 03/02/23 08:00 Temperature Pulse Rate 99 H 113 H Respiratory Rate 32 H 11 L Blood Pressure 113/74 Pulse Oximetry 97 96 Oxygen Flow Rate 03/02/23 08:30 03/02/23 09:00 03/02/23 10:00 Temperature Pulse Rate 103 H 94 H 103 H Respiratory Rate 20 23 Blood Pressure 107/55 L Pulse Oximetry 98 97 Oxygen Flow Rate 0 03/02/23 10:01 03/02/23 10:01 03/02/23 10:30 Temperature Pulse Rate 102 H 96 H Respiratory Rate 21 21 Blood Pressure 143/67 H Pulse Oximetry 98 95 Oxygen Flow Rate 03/02/23 11:00 03/02/23 11:01 03/02/23 11:01 Temperature Pulse Rate 94 H 96 H Respiratory Rate 26 H 18 Blood Pressure 110/65 Pulse Oximetry 95 95 Oxygen Flow Rate 03/02/23 11:30 03/02/23 12:00 03/02/23 12:00 Temperature Pulse Rate 88 85 90 Respiratory Rate 16 Blood Pressure 117/56 L Pulse Oximetry 97 94 93 Oxygen Flow Rate 0 03/02/23 12:34 03/02/23 12:24 03/02/23 12:24 Temperature 96.9 F L Pulse Rate 90 Respiratory Rate Blood Pressure 117/56 L Pulse Oximetry 95 Oxygen Flow Rate 03/02/23 12:30 03/02/23 13:00 03/02/23 13:01 Temperature Pulse Rate 90 87 Respiratory Rate Blood Pressure 119/55 L Pulse Oximetry 93 93 Oxygen Flow Rate 03/02/23 13:01 03/02/23 13:30 03/02/23 14:00 Temperature Pulse Rate 87 89 91 H Respiratory Rate 21 Blood Pressure Pulse Oximetry 94 94 97 Oxygen Flow Rate 03/02/23 14:01 03/02/23 14:01 Temperature Pulse Rate 85 Respiratory Rate 19 Blood Pressure 109/57 L Pulse Oximetry 97 Oxygen Flow Rate Oxygen Delivery Method Room Air Oxygen Flow Rate 0 Narrative Exam Narrative: GEN: no acute distress HEENT: dry mucous membranes, PERRL NECK: trachea midline, no jvd PULM: clear bilaterally, no wheezes, rhonchi, rales CV: tachycardic, no murmurs ABD: soft, nontender, nondisnteded, no organomegaly EXT: warm and well perfused with no edema NEURO: awake, alert, oriented, no focal deficits Objective Labs 03/02/23 08:28 03/02/23 12:50 Labs: Laboratory Results - last 24 hr 03/01/23 03/01/23 03/01/23 20:40 20:40 20:40 WBC 10.9 RBC 5.46 H Hgb 16.1 H Hct 47.4 H MCV 86.7 MCH 29.4 MCHC 33.9 RDW 13.1 Plt Count 212 Neut % (Auto) 89.1 H Lymph % (Auto) 3.7 L [place] % (Auto) 6.5 Eos % (Auto) 0.2 L Baso % (Auto) 0.5 Neut # (Auto) 9700 H Lymph # (Auto) 400 L [place] # (Auto) 700 Eos # (Auto) 0 Baso # (Auto) 100 VBG pH VBG pCO2 VBG pO2 VBG HCO3 VBG Total CO2 VBG O2 Saturation VBG Base Excess FiO2 Sodium 136 L Potassium 4.0 Chloride 105 Carbon Dioxide 6 L* BUN 16 Creatinine 0.71 Estimated GFR > 60 BUN/Creatinine Ratio 22.5 H Glucose 154 H Calcium 8.8 Total Bilirubin 0.8 AST 37 H ALT 55 H Alkaline Phosphatase 69 Total Protein 7.9 Albumin 4.5 Globulin 3.4 Albumin/Globulin Ratio 1.3 Lipase 69 Serum , Qual Urine Color Urine Appearance Urine pH Ur Specific [place] Urine Protein Urine Glucose (UA) Urine Ketones Urine Occult Blood Urine Nitrate Urine Bilirubin Ur Bilirubin Confirm Urine Urobilinogen Ur Leukocyte Esterase Urine RBC Urine WBC Ur Squamous Epith Cells Ur Transition Epith Cell Ur Renal Epithelial Cell Calcium Oxalate Crystal Uric Acid Crystals Triple Phos Crystals Other Crystals Amorphous Sediment Urine Bacteria Hyaline Casts Granular Casts RBC Casts WBC Casts Other Casts Urine Mucus Urine Trichomonas Urine Yeast Urine Sperm Ur Culture Indicated? Micro UA Comment Ketones 5.94 H Chlamy pneumoniae PCR Adenovirus (PCR) B. pertussis DNA (PCR) B.parapertussis DNA PCR Coronavirus OC43 (PCR) Coronavirus HKU1 (PCR) Coronavirus 229E (PCR) SARS-CoV-2 (PCR) Coronavirus NL63 (PCR) Human Metapneumovir PCR Influenza Type A (PCR) Influenza Type B (PCR) M. pneumoniae (PCR) Parainfluenza 1 (PCR) Parainfluenza 2 (PCR) Parainfluenza 3 (PCR) Parainfluenza 4 (PCR) RSV (PCR) Entero/Rhino (PCR) 03/01/23 03/01/23 03/01/23 20:40 21:34 22:40 WBC RBC Hgb Hct MCV MCH MCHC RDW Plt Count Neut % (Auto) Lymph % (Auto) [place] % (Auto) Eos % (Auto) Baso % (Auto) Neut # (Auto) Lymph # (Auto) [place] # (Auto) Eos # (Auto) Baso # (Auto) VBG pH 7.23 L VBG pCO2 34.0 L VBG pO2 26 L VBG HCO3 14 L VBG Total CO2 15 L VBG O2 Saturation 39 L VBG Base Excess -13.0 L FiO2 21 Sodium Potassium Chloride Carbon Dioxide BUN Creatinine Estimated GFR BUN/Creatinine Ratio Glucose Calcium Total Bilirubin AST ALT Alkaline Phosphatase Total Protein Albumin Globulin Albumin/Globulin Ratio Lipase Serum , Qual Negative Urine Color Yellow Urine Appearance Clear Urine pH 5.5 Ur Specific [place] >=1.030 H Urine Protein Trace H Urine Glucose (UA) 2+ H Urine Ketones 3+ H Urine Occult Blood Negative Urine Nitrate Negative Urine Bilirubin 1+ H Ur Bilirubin Confirm Negative Urine Urobilinogen 0.2 Ur Leukocyte Esterase Negative Urine RBC None seen Urine WBC 5-10/hpf H Ur Squamous Epith Cells 5-10 /hpf H Ur Transition Epith Cell 1-5/hpf Ur Renal Epithelial Cell Calcium Oxalate Crystal Uric Acid Crystals Triple Phos Crystals Other Crystals Amorphous Sediment Urine Bacteria Moderate (10-30) H Hyaline Casts Granular Casts RBC Casts WBC Casts Other Casts Urine Mucus Urine Trichomonas Urine Yeast 5-10/hpf H Urine Sperm Ur Culture Indicated? Specimen cultured Micro UA Comment Ketones Chlamy pneumoniae PCR Adenovirus (PCR) B. pertussis DNA (PCR) B.parapertussis DNA PCR Coronavirus OC43 (PCR) Coronavirus HKU1 (PCR) Coronavirus 229E (PCR) SARS-CoV-2 (PCR) Coronavirus NL63 (PCR) Human Metapneumovir PCR Influenza Type A (PCR) Influenza Type B (PCR) M. pneumoniae (PCR) Parainfluenza 1 (PCR) Parainfluenza 2 (PCR) Parainfluenza 3 (PCR) Parainfluenza 4 (PCR) RSV (PCR) Entero/Rhino (PCR) 03/01/23 03/01/23 03/02/23 22:40 22:40 03:52 WBC RBC Hgb Hct MCV MCH MCHC RDW Plt Count Neut % (Auto) Lymph % (Auto) [place] % (Auto) Eos % (Auto) Baso % (Auto) Neut # (Auto) Lymph # (Auto) [place] # (Auto) Eos # (Auto) Baso # (Auto) VBG pH VBG pCO2 VBG pO2 VBG HCO3 VBG Total CO2 VBG O2 Saturation VBG Base Excess FiO2 Sodium 137 Potassium 4.0 Chloride 109 H Carbon Dioxide 11 L BUN 14 Creatinine 0.70 Estimated GFR > 60 BUN/Creatinine Ratio 20.0 Glucose 150 H Calcium 7.9 L Total Bilirubin AST ALT Alkaline Phosphatase Total Protein Albumin Globulin Albumin/Globulin Ratio Lipase Serum , Qual Urine Color Urine Appearance Urine pH Ur Specific [place] Urine Protein Urine Glucose (UA) Urine Ketones Urine Occult Blood Urine Nitrate Urine Bilirubin Ur Bilirubin Confirm Urine Urobilinogen Ur Leukocyte Esterase Urine RBC Cancelled Urine WBC Cancelled Ur Squamous Epith Cells Cancelled Ur Transition Epith Cell Cancelled Ur Renal Epithelial Cell Cancelled Calcium Oxalate Crystal Cancelled Uric Acid Crystals Cancelled Triple Phos Crystals Cancelled Other Crystals Cancelled Amorphous Sediment Cancelled Urine Bacteria Cancelled Hyaline Casts Cancelled Granular Casts Cancelled RBC Casts Cancelled WBC Casts Cancelled Other Casts Cancelled Urine Mucus Cancelled Urine Trichomonas Cancelled Urine Yeast Cancelled Urine Sperm Cancelled Ur Culture Indicated? Cancelled Micro UA Comment Cancelled Ketones Chlamy pneumoniae PCR Not detected Adenovirus (PCR) Not detected B. pertussis DNA (PCR) Not detected B.parapertussis DNA PCR Not detected Coronavirus OC43 (PCR) Not detected Coronavirus HKU1 (PCR) Not detected Coronavirus 229E (PCR) Not detected SARS-CoV-2 (PCR) Not detected Coronavirus NL63 (PCR) Not detected Human Metapneumovir PCR Not detected Influenza Type A (PCR) Not detected Influenza Type B (PCR) Not detected M. pneumoniae (PCR) Not detected Parainfluenza 1 (PCR) Not detected Parainfluenza 2 (PCR) Not detected Parainfluenza 3 (PCR) Not detected Parainfluenza 4 (PCR) Not detected RSV (PCR) Not detected Entero/Rhino (PCR) Not detected 03/02/23 03/02/23 03/02/23 08:28 08:28 12:50 WBC 9.2 RBC 4.90 Hgb 14.3 Hct 42.6 MCV 86.9 MCH 29.1 MCHC 33.5 RDW 13.3 Plt Count 209 Neut % (Auto) Lymph % (Auto) [place] % (Auto) Eos % (Auto) Baso % (Auto) Neut # (Auto) Lymph # (Auto) [place] # (Auto) Eos # (Auto) Baso # (Auto) VBG pH VBG pCO2 VBG pO2 VBG HCO3 VBG Total CO2 VBG O2 Saturation VBG Base Excess FiO2 Sodium 133 L 133 L Potassium 4.1 3.8 Chloride 107 107 Carbon Dioxide 12 L 13 L BUN 13 11 Creatinine 0.61 0.54 Estimated GFR > 60 > 60 BUN/Creatinine Ratio 21.3 20.4 Glucose 154 H 161 H Calcium 7.7 L 7.6 L Total Bilirubin AST ALT Alkaline Phosphatase Total Protein Albumin Globulin Albumin/Globulin Ratio Lipase Serum , Qual Urine Color Urine Appearance Urine pH Ur Specific [place] Urine Protein Urine Glucose (UA) Urine Ketones Urine Occult Blood Urine Nitrate Urine Bilirubin Ur Bilirubin Confirm Urine Urobilinogen Ur Leukocyte Esterase Urine RBC Urine WBC Ur Squamous Epith Cells Ur Transition Epith Cell Ur Renal Epithelial Cell Calcium Oxalate Crystal Uric Acid Crystals Triple Phos Crystals Other Crystals Amorphous Sediment Urine Bacteria Hyaline Casts Granular Casts RBC Casts WBC Casts Other Casts Urine Mucus Urine Trichomonas Urine Yeast Urine Sperm Ur Culture Indicated? Micro UA Comment Ketones Chlamy pneumoniae PCR Adenovirus (PCR) B. pertussis DNA (PCR) B.parapertussis DNA PCR Coronavirus OC43 (PCR) Coronavirus HKU1 (PCR) Coronavirus 229E (PCR) SARS-CoV-2 (PCR) Coronavirus NL63 (PCR) Human Metapneumovir PCR Influenza Type A (PCR) Influenza Type B (PCR) M. pneumoniae (PCR) Parainfluenza 1 (PCR) Parainfluenza 2 (PCR) Parainfluenza 3 (PCR) Parainfluenza 4 (PCR) RSV (PCR) Entero/Rhino (PCR) [facility] Medical History Diabetes Hypertension Hypothyroid Upper respiratory infection Social History household members: spouse Smoking Status: Former smoker Assessment & Plan Assessment & Plan narrative: 1. Euglycemic DKA -patient noted to be in DKA, with acidosis, elevated anion gap, low bicarb, glucose is near normal, but ketones are elevated -suspect she has euglycemic dka in setting of using sglt2 -hold oral diabetic medications -last dose of sglt2 was 02/26 -ordered insulin gtt, and d51/2ns, follow dka protocol. As of this afternoon patient remains on infusion, with closed gap but continued acidosis. -trend bmp q4h -can advance to clears. 2. Possible UTI -UA showed positive bacteria, but also squamous epithelial cells so may be contaminant -for now ordered ceftriaxone x3 days -follow up urine culture 3. Hypothyroidism -continue synthroid 4. Hypertension -hold anti-hypertensives CODE: Full Proxy: Leonel Clay, I spent 40 minutes providing critical care management this patient. This excludes time spent in performing separately billed procedures. Quality VTE Deep Vein Thrombosis/Pulmonary Embolism Present on Admission: No
[2023-03-02] MEDS: INSULIN DRIP PREMIX 100 UNIT/100 ML PLAST..BAG IV (15:39)
--- NOTE | 2023-03-02 18:03 | PC.NURSE ---
Day shift: Pt had episode of emesis in morning. Resolved with ordered antiemetic. Pt rested quietly during the morning. SBA to BSC and BR. A&Ox4, VSS, Q2H blood glucose. Family at bedside. Pt tolerated clear liquid diet at dinner. No complaints of nausea at this time. Pt Sitting in chair. Call light within reach. Care ongoing.
[2023-03-02] MEDS: DEXTROSE 5%-0.45% NS 1,000 ML 220 ML IV ×2 (18:38→23:53)
[2023-03-02 18:48] LABS: Blood Urea Nitrogen 9 mg/dL (7-17); Calcium 7.4 mg/dL (8.4-10.2); Carbon Dioxide 15 mmol/L (22-32); Chloride 109 mmol/L (98-107); Estimated Glomerular Filt Rate > 60 mL/min (>60); Glucose 185 mg/dL (70-100); HEMOLYSIS < 15 (0-50); Potassium 3.8 mmol/L (3.4-5.1); Sodium 131 mmol/L (137-145)
[2023-03-02 23:36] LABS: x Labcorp Estim. Avg Glu (eAG) 166 mg/dL (.); x Labcorp Hemoglobin A1c 7.4 % (4.8-5.6)
[2023-03-03] VITALS (17 sets, daily range): BP systolic 128–158; BP diastolic 66–95; PULSE 77–97; RESP 15–23; TEMP 35.8–37; O2SAT 97–100
[2023-03-03] MEDS: ONDANSETRON 4 MG/2 ML INJ IV ×2 (00:52→16:15)
--- NOTE | 2023-03-03 01:00 | PC.NURSE ---
Addendum entered by Marian Draper R.N. 03/03/23 06:20: 0600- No further dry heaves or nausea. Stool was negative for C-diff. Patient states she feels hungry. Will monitor. Original Note: 0100- Patient dry heaving no actual emesis noted. This occurred after the Rocephin finished infusing. Medicated with Zofran IV per order.
[2023-03-03 01:16] LABS: Clostridium Difficile Tox PCR Negative for C. diff (Negative)
[2023-03-03 01:44] LABS: BUN Creatinine Ratio 10.2 (6-22); Blood Urea Nitrogen 6 mg/dL (7-17); Calcium 7.5 mg/dL (8.4-10.2); Carbon Dioxide 19 mmol/L (22-32); Chloride 107 mmol/L (98-107); Estimated Glomerular Filt Rate > 60 mL/min (>60); Glucose 153 mg/dL (70-100); HEMOLYSIS < 15 (0-50); Potassium 3.7 mmol/L (3.4-5.1); Sodium 133 mmol/L (137-145)
[2023-03-03] MEDS: POTASSIUM CHLORIDE IN WATER 10 MEQ/100 ML PIGGYBACK 100 MEQ IV ×4 (02:18→05:34)
[2023-03-03] MEDS: ACETAMINOPHEN 325 MG TABLET 650 MG PO (03:20)
[2023-03-03] MEDS: INSULIN DRIP PREMIX 100 UNIT/100 ML PLAST..BAG IV (03:30)
[2023-03-03] MEDS: DEXTROSE 5%-0.45% NS 1,000 ML 220 ML IV ×2 (04:54→09:24)
[2023-03-03] MEDS: LEVOTHYROXINE 50 MCG TABLET PO (06:02)
[2023-03-03 08:06] LABS: BUN Creatinine Ratio 7.8 (6-22); Blood Urea Nitrogen 4 mg/dL (7-17); Calcium 7.7 mg/dL (8.4-10.2); Carbon Dioxide 15 mmol/L (22-32); Chloride 111 mmol/L (98-107); Estimated Glomerular Filt Rate > 60 mL/min (>60); Glucose 110 mg/dL (70-100); HEMOLYSIS < 15 (0-50); Potassium 3.9 mmol/L (3.4-5.1); Sodium 135 mmol/L (137-145)
[2023-03-03] MEDS: lisinopriL 20 MG TABLET 40 MG PO (08:22)
[2023-03-03] MEDS: ENOXAPARIN 40 MG/0.4 ML SYRINGE SUBCUT ×2 (08:22→21:21)
[2023-03-03] MEDS: PANTOPRAZOLE DR 40 MG TABLET PO (08:22)
[2023-03-03] MEDS: FLUoxetine 20 MG CAPSULE PO (08:22)
[2023-03-03] MEDS: VERAPAMIL 80 MG TABLET 40 MG PO ×2 (08:22→21:21)
[2023-03-03] MEDS: LOPERAMIDE 2 MG CAPSULE PO ×2 (10:45→16:17)
[2023-03-03 12:30] LABS: Adenovirus F 40/41 Not Detected (Not Detect); Astrovirus Not Detected (Not Detect); Campylobacter Not Detected (Not Detect); Clostridium difficile toxin AB Not Detected (Not Detect); Cryptosporidium Not Detected (Not Detect); Cyclospora cayetanensis Not Detected (Not Detect); Entamoeba histolytica Not Detected (Not Detect); Enteroaggregative E.coli Not Detected (Not Detect); Enteropathogenic E.coli Not Detected (Not Detect); Enterotoxigenic E.coli It/st Not Detected (Not Detect); Giardia lamblia Not Detected (Not Detect); Norovirus GI/GII Not Detected (Not Detect); Plesiomonsa shigelloides Not Detected (Not Detect); Rotavirus A Detected (Not Detect); Salmonella Not Detected (Not Detect); Sapovirus Not Detected (Not Detect); Shiga-like toxin-prod E.coli Not Detected (Not Detect); Shigella/Enteroinvasive E.coli Not Detected (Not Detect); Vibrio Not Detected (Not Detect); Vibrio cholerae Not Detected (Not Detect); Yersinia enterocolitica Not Detected (Not Detect)
[2023-03-03 12:36] LABS: BUN Creatinine Ratio 7.7 (6-22); Blood Urea Nitrogen 4 mg/dL (7-17); Calcium 7.6 mg/dL (8.4-10.2); Carbon Dioxide 16 mmol/L (22-32); Chloride 110 mmol/L (98-107); Estimated Glomerular Filt Rate > 60 mL/min (>60); Glucose 166 mg/dL (70-100); HEMOLYSIS < 15 (0-50); Potassium 3.2 mmol/L (3.4-5.1); Sodium 136 mmol/L (137-145)
[2023-03-03] MEDS: INSULIN GLARGINE 100 UNIT/ML 3ML PEN 15 UNIT SUBCUT (13:46)
[2023-03-03] MEDS: POTASSIUM CHLORIDE 20 MEQ TAB 40 MEQ PO ×2 (14:22→21:20)
[2023-03-03] MEDS: DEXTROSE 5%-0.45% NS 1,000 ML 165 ML IV (14:47)
--- NOTE | 2023-03-03 17:03 | PC.NURSE ---
Day shift: Insulin gtt and fluids stopped at [address] Fowler. Pt tearful and concerned for discharge tomorrow, stating, I don't think I'm ready, and, What if I end up back here? Pt educated on deep breathing. Pt c/o nausea and dry heaving, ordered prn administered. Provided education on the discharge process and the steps needed to reach before pt will be discharged. Pt assisted with shower. Pt no longer tearful at this time, sitting in bed talking with family on cellular phone. Care ongoing.
--- NOTE | 2023-03-03 17:45 | PM.PN.1 ---
Subjective Subjective Interval history: Patient with slow improvement today, gap closed but acidosis persists, suspect that it may be related to her normal saline infusion as clinically she appeared well. Diarrhea overnight, negative for C. diff but found to have rotavirus, likely the etiology of her DKA. Gave lantus this afternoon, shut off insulin after 2 hours, will repeat BMP this evening to see if acidosis improving after being able to stop IV fluids with insulin infusion off. Exam Vital Signs (past 8 hours): - 03/03/23 15:42 03/03/23 17:00 Temperature 97.5 F L Pulse Rate 95 H Respiratory Rate 16 Blood Pressure 137/95 H Pulse Oximetry 99 Oxygen Delivery Method Room Air Oxygen Flow Rate 0 Oxygen Delivery Method Room Air Oxygen Flow Rate 0 Narrative Exam Narrative: GEN: no acute distress, improved but acutely ill appearing HEENT: dry mucous membranes, PERRL NECK: trachea midline, no jvd PULM: clear bilaterally, no wheezes, rhonchi, rales CV: RRR, no murmurs ABD: soft, nontender, nondisnteded, no organomegaly EXT: warm and well perfused with no edema NEURO: awake, alert, oriented, no focal deficits Objective Labs 03/02/23 08:28 03/03/23 12:17 Labs: Laboratory Results - last 24 hr 03/01/23 03/02/23 03/02/23 20:40 18:30 23:26 Sodium 131 L Potassium 3.8 Chloride 109 H Carbon Dioxide 15 L BUN 9 Creatinine 0.53 Estimated GFR > 60 BUN/Creatinine Ratio 17.0 Glucose 185 H Hgb A1c (Ref Lab) 7.4 H Estim Average Glucose 166 Calcium 7.4 L Stl C. cayetanensis PCR Stool Rotavirus (PCR) Stool Adenovirus (PCR) Stool Astrovirus (PCR) Stool Cryptosporidium PCR Stl E.coli Shiga Tox PCR St Sh/Enteroin Ecoli PCR Stool E coli O157 PCR Stl Enterotoxigenic E PCR Stool EPEC (PCR) Stl E. histolytica PCR Stool Giardia Lamblia PCR Stool Sapovirus (PCR) Stl P. shigelloides PCR St Y.enterocolitica PCR Stool Vibrio (PCR) Stl Vibrio cholerae PCR Stl Enteroaggr Ecoli PCR Stl Norovirus GI/GII PCR Campylobacter (PCR) C. difficile Tox (PCR) Negative for c. diff Salmonella (PCR) 03/03/23 03/03/23 03/03/23 01:28 07:10 10:55 Sodium 133 L 135 L Potassium 3.7 3.9 Chloride 107 111 H Carbon Dioxide 19 L 15 L BUN 6 L 4 L Creatinine 0.59 0.51 L Estimated GFR > 60 > 60 BUN/Creatinine Ratio 10.2 7.8 Glucose 153 H 110 H Hgb A1c (Ref Lab) Estim Average Glucose Calcium 7.5 L 7.7 L Stl C. cayetanensis PCR Not detected Stool Rotavirus (PCR) Detected H Stool Adenovirus (PCR) Not detected Stool Astrovirus (PCR) Not detected Stool Cryptosporidium PCR Not detected Stl E.coli Shiga Tox PCR Not detected St Sh/Enteroin Ecoli PCR Not detected Stool E coli O157 PCR Not Reportable Stl Enterotoxigenic E PCR Not detected Stool EPEC (PCR) Not detected Stl E. histolytica PCR Not detected Stool Giardia Lamblia PCR Not detected Stool Sapovirus (PCR) Not detected Stl P. shigelloides PCR Not detected St Y.enterocolitica PCR Not detected Stool Vibrio (PCR) Not detected Stl Vibrio cholerae PCR Not detected Stl Enteroaggr Ecoli PCR Not detected Stl Norovirus GI/GII PCR Not detected Campylobacter (PCR) Not detected C. difficile Tox (PCR) Not detected Salmonella (PCR) Not detected 03/03/23 12:17 Sodium 136 L Potassium 3.2 L Chloride 110 H Carbon Dioxide 16 L BUN 4 L Creatinine 0.52 Estimated GFR > 60 BUN/Creatinine Ratio 7.7 Glucose 166 H Hgb A1c (Ref Lab) Estim Average Glucose Calcium 7.6 L Stl C. cayetanensis PCR Stool Rotavirus (PCR) Stool Adenovirus (PCR) Stool Astrovirus (PCR) Stool Cryptosporidium PCR Stl E.coli Shiga Tox PCR St Sh/Enteroin Ecoli PCR Stool E coli O157 PCR Stl Enterotoxigenic E PCR Stool EPEC (PCR) Stl E. histolytica PCR Stool Giardia Lamblia PCR Stool Sapovirus (PCR) Stl P. shigelloides PCR St Y.enterocolitica PCR Stool Vibrio (PCR) Stl Vibrio cholerae PCR Stl Enteroaggr Ecoli PCR Stl Norovirus GI/GII PCR Campylobacter (PCR) C. difficile Tox (PCR) Salmonella (PCR) [facility] Medical History Diabetes Hypertension Hypothyroid Upper respiratory infection Social History household members: spouse Smoking Status: Former smoker Assessment & Plan Assessment & Plan narrative: 1. Euglycemic DKA, likely in setting of Rotavirus infection. -patient noted to be in DKA, with acidosis, elevated anion gap, low bicarb, glucose is near normal, but ketones are elevated -suspect she has euglycemic dka in setting of using sglt2 -continue to hold oral diabetic medications -last dose of sglt2 was 02/26 -ordered insulin gtt, and d51/2ns, follow dka protocol. As of this afternoon patient remains on infusion, with closed gap but continued acidosis. This persisted for 24 hours. Suspect the acidosis was due to her 1/2 normal saline infusion. -Gave lantus this afternoon at 15 Units, shut off fluids. Will check BMP this evening to test that acidosis is improving off fluids. If it is can downgrade but if worsening acidosis may need to resume insulin infusion again. -can advance to carb controlled diet 2. Possible UTI -UA showed positive bacteria, but also squamous epithelial cells so may be contaminant. Urine with multiple bacteria on culture -will complete 3 days of ceftriaxone given presentation with DKA, today day 2/3. 3. Hypothyroidism -continue synthroid 4. Hypertension -resumed home antihypertensives today. 5. Migraines - continue home verapamil. CODE: Full Proxy: Leonel Clay, I spent 35 minutes providing critical care management this patient. This excludes time spent in performing separately billed procedures. Dispo: remains ICU for now pending repeat BMP, possible downgrade this evening if no worsening acidosis. Possible discharge home tomorrow. Quality VTE Deep Vein Thrombosis/Pulmonary Embolism Present on Admission: No
[2023-03-03 18:35] LABS: BUN Creatinine Ratio 5.6 (6-22); Blood Urea Nitrogen 3 mg/dL (7-17); Calcium 7.9 mg/dL (8.4-10.2); Carbon Dioxide 19 mmol/L (22-32); Chloride 109 mmol/L (98-107); Estimated Glomerular Filt Rate > 60 mL/min (>60); Glucose 155 mg/dL (70-100); HEMOLYSIS < 15 (0-50); Potassium 3.7 mmol/L (3.4-5.1); Sodium 136 mmol/L (137-145)
[2023-03-03] MEDS: SODIUM CHLORIDE 0.9% FLUSH 10 ML IV (21:21)
[2023-03-03] MEDS: cefTRIAXone 1,000 MG in SODIUM CHLORIDE 0.9% 100 ML 200 MG IV (23:59)
[2023-03-04] VITALS (11 sets, daily range): BP systolic 97–149; BP diastolic 59–89; PULSE 65–89; RESP 17–20; TEMP 36.1–36.8; O2SAT 96–99
[2023-03-04] MEDS: ACETAMINOPHEN 325 MG TABLET 650 MG PO ×2 (00:54→11:27)
[2023-03-04 05:02] LABS: Calcium 7.7 mg/dL (8.4-10.2); Carbon Dioxide 20 mmol/L (22-32); Chloride 111 mmol/L (98-107); Estimated Glomerular Filt Rate > 60 mL/min (>60); Glucose 123 mg/dL (70-100); HEMOLYSIS 19 (0-50); Potassium 3.7 mmol/L (3.4-5.1); Sodium 137 mmol/L (137-145)
[2023-03-04 05:04] LABS: BUN Creatinine Ratio 4.2 (6-22); Blood Urea Nitrogen 2 mg/dL (7-17)
[2023-03-04] MEDS: LEVOTHYROXINE 50 MCG TABLET PO (07:38)
[2023-03-04] MEDS: ENOXAPARIN 40 MG/0.4 ML SYRINGE SUBCUT ×2 (08:32→20:21)
[2023-03-04] MEDS: VERAPAMIL 80 MG TABLET 40 MG PO ×2 (08:32→20:21)
[2023-03-04] MEDS: FLUoxetine 20 MG CAPSULE PO (08:34)
[2023-03-04] MEDS: PANTOPRAZOLE DR 40 MG TABLET PO (08:34)
[2023-03-04] MEDS: lisinopriL 20 MG TABLET 40 MG PO (08:34)
[2023-03-04] MEDS: SODIUM CHLORIDE 0.9% FLUSH 10 ML IV ×2 (08:35→20:22)
[2023-03-04] MEDS: INSULIN GLARGINE 100 UNIT/ML 3ML PEN 15 UNIT SUBCUT (12:58)
--- NOTE | 2023-03-04 14:02 | CM.DPNOTE ---
Discharge Planning Note: Spoke with patient who is saying that she may go home tomorrow per doctor. She is still fatigued. She lives with a morbidly 450 lb spouse who needs assistance with many ADLs, also with her teenage son who is helpful. Discussed getting some help for her/him. She states [place] will pay for respite care when needed. Plan: When medically cleared, discharge home. Elodia Jara RN/DCP
--- NOTE | 2023-03-04 18:31 | PM.PN.1 ---
Subjective Subjective Interval history: Off insulin infusion since yesterday, remains slightly nauseous but improving. Remains weak and tired. Exam Vital Signs (past 8 hours): - 03/04/23 10:54 03/04/23 10:57 03/04/23 15:00 Temperature 97.8 F Pulse Rate 79 78 Respiratory Rate 18 20 Blood Pressure 128/81 124/75 Pulse Oximetry 99 98 Oxygen Delivery Method Room Air Oxygen Delivery Method Room Air Oxygen Flow Rate 0 Narrative Exam Narrative: GEN: no acute distress, improved but acutely ill appearing HEENT: dry mucous membranes, PERRL NECK: trachea midline, no jvd PULM: clear bilaterally, no wheezes, rhonchi, rales CV: RRR, no murmurs ABD: soft, nontender, nondisnteded, no organomegaly EXT: warm and well perfused with no edema NEURO: awake, alert, oriented, no focal deficits Objective Labs 03/02/23 08:28 03/04/23 04:07 Labs: Laboratory Results - last 24 hr 03/03/23 03/04/23 18:10 04:07 Sodium 136 L 137 Potassium 3.7 3.7 Chloride 109 H 111 H Carbon Dioxide 19 L 20 L BUN 3 L 2 L Creatinine 0.54 0.48 L Estimated GFR > 60 > 60 BUN/Creatinine Ratio 5.6 L 4.2 L Glucose 155 H 123 H Calcium 7.9 L 7.7 L PFSH Medical History Diabetes Hypertension Hypothyroid Upper respiratory infection Social History household members: spouse Smoking Status: Former smoker Assessment & Plan Assessment & Plan narrative: 1. Euglycemic DKA, likely in setting of Rotavirus infection. -patient noted to be in DKA, with acidosis, elevated anion gap, low bicarb, glucose is near normal, but ketones are elevated -suspect she has euglycemic dka in setting of using sglt2 -continue to hold oral diabetic medications -last dose of sglt2 was 02/26 -ordered insulin gtt, and d51/2ns, followed dka protocol. As of this afternoon patient remains on infusion, with closed gap but continued acidosis. This persisted for 24 hours. Suspect the acidosis was due to her 1/2 normal saline infusion. -Gave lantus this afternoon at 15 Units, shut off fluids with improvement in acidosis and no recurrence of DKA. Continue to adjust insulin therapy as needed. 2. Possible UTI -UA showed positive bacteria, but also squamous epithelial cells so may be contaminant. Urine with multiple bacteria on culture -will complete 3 days of ceftriaxone given presentation with DKA, today day 3/. 3. Hypothyroidism -continue synthroid 4. Hypertension -resumed home antihypertensives, BP normal today. 5. Migraines - continue home verapamil. CODE: Full Proxy: Leonel Clay, Dispo: probably home tomorrow if symptoms improve and tolerating adequate oral intake. Quality VTE Deep Vein Thrombosis/Pulmonary Embolism Present on Admission: No
[2023-03-05] VITALS: BP 126/90; PULSE 73; RESP 19; TEMP 36.4; O2SAT 96
[2023-03-05 04:00] VITALS: BP 118/79; PULSE 71; RESP 18; TEMP 36.2; O2SAT 99
[2023-03-05] MEDS: LEVOTHYROXINE 50 MCG TABLET PO (06:04)
--- NOTE | 2023-03-05 08:03 | PM.DS.1 ---
History of Present Illness History of Present Illness Date Patient Seen: 03/05/23 Time Patient Seen: 08:03 Chief complaint: Vomiting Narrative: Per admitting provider, Ms. Cartagena is a 47W with PMH DM, hypothyroidism who presents to the hospital with nausea and vomiting. She was started on ozempic a few months ago, her dose was just increased. She took her last dose Monday. That day she thinks she developed food poisoning because both she and her had nausea and vomiting. Her symptoms have continued. She has monitored her blood sugars and they have been in the 150s. No diarrhea. No cough, shortness of breath, chest pain. No dysuria. In the ED workup was done, vitals notable for afebrile heart rate 120s, blood pressure 120s/90s. Sats 97% on room air. Labs reviewed by me and notable for WBC 10.9, hgb 16.1. Na 136, co2 6, creatinine 0.71. Ketones 5.94. UA with bacteria and wbcs, but also squamous epithelial cells. CT abdomen/pelvis reviewed by me and notable for no acute process. She was ordered for IV fluids. She was admitted for further treatment of her DKA. Discharge Providers Provider Date of admission: 03/01/23 23:54 Discharge Date: 03/05/23 Primary care physician: Loreta Wheeler PA-C Discharge provider: Sanju Fowler DO Summary Hospital Course Discharge Diagnosis: 1. Euglycemic DKA, likely in setting of Rotavirus infection. 2. Possible UTI 3. Hypothyroidism 4. Hypertension 5. Migraines Hospital Course: 47 year old type 2 diabetic admitted with Euglycemic DKA. She was started on an insulin improvement with quick improvement in her anion gap, though metabolic acidosis persisted. Acidosis likely persisted due to high requirements for normal saline infusion given her insulin and D5 1/2 NS infusion, as when taken off of insulin infusion after giving her home lantus her acidosis improved. She was discharged about 36 hours after removing the insulin infusion when she was more adueqately tolerating a diet and strength had returned. She developed diarrhea during her stay, which was positive for rotavirus, likely the etiology of her DKA. A1c was near 7, so no changes to her home medications were recommended at the time of discharge. She was treated for a possible UA given her presentation and contaminanted urinalysis on admission with 3 days of ceftriaxone during her stay, no further antiboitics are necessary. Time Spent with Patient Time spent: Greater than 30 minutes Exam Vital Signs (past 8 hours): - 03/05/23 04:00 Temperature 97.1 F L Pulse Rate 71 Respiratory Rate 18 Blood Pressure 118/79 Pulse Oximetry 99 Oxygen Delivery Method Room Air Oxygen Flow Rate 0 Narrative Exam Narrative: GEN: no acute distress, improved but acutely ill appearing HEENT: dry mucous membranes, PERRL NECK: trachea midline, no jvd PULM: clear bilaterally, no wheezes, rhonchi, rales CV: RRR, no murmurs ABD: soft, nontender, nondisnteded, no organomegaly EXT: warm and well perfused with no edema NEURO: awake, alert, oriented, no focal deficits Objective Labs 03/02/23 08:28 03/04/23 04:07 [facility] Medical History Diabetes Hypertension Hypothyroid Upper respiratory infection Social History household members: spouse Smoking Status: Former smoker Discharge Plan Discharge Plan Patient Disposition: Home Provider Discharge Comment: You were admitted to the hospital with DKA, caused by a rotavirus infection. You can continue immodium at home for diarrhea. Your A1c was 7.4%, so no medication changes are recommended at discharge. if a similar process happens again I would stop your metformin if you're having difficulty keeping fluids down. Discharge orders & Medications Prescriptions: Continued verapamil 40 mg tablet 40 mg PO BID lisinopril 40 mg tablet 40 mg PO DAILY levothyroxine 50 mcg capsule 50 mcg PO DAILY empagliflozin [Jardiance] 10 mg tablet 10 mg PO DAILY metformin 500 mg Tablet Extended Release 24 Hr 2,000 mg PO QPM glimepiride 2 mg PO DAILY methocarbamol 500 MG tablet 500 mg PO QIDP PRN (Reason: Back spasms) pantoprazole 40 mg Tablet,Delayed Release (Dr/Ec) 40 mg PO DAILY fluoxetine 20 mg Capsule 20 mg PO DAILY insulin degludec 100 unit/mL (3 mL) insulin pen 15 unit SUBCUT BEDTIME Patient Comments: Inject 15 unit subcutaneously every night Follow up/Referrals: Loreta Wheeler PA-C [Primary Care Provider] - Diet/Activity/Treatments Diet: Diet as Tolerated and Carb-consistent/Diabetic Activity: As tolerated Visit Report/Discharge Packet Stand Alone Forms: Patient Portal/API, Stroke Signs & Symptoms Discharge Data Primary Care Provider: Loreta Wheeler Discharges patient from system. Discharge Date/Time: 03/05/23 11:02 Quality VTE Deep Vein Thrombosis/Pulmonary Embolism Present on Admission: No
[2023-03-05 08:04] VITALS: BP 118/79; PULSE 76; RESP 18; TEMP 36.6; O2SAT 97
[2023-03-05 08:38] VITALS: BP 118/79; PULSE 76
[2023-03-05] MEDS: FLUoxetine 20 MG CAPSULE PO (08:38)
[2023-03-05] MEDS: lisinopriL 20 MG TABLET 40 MG PO (08:38)
[2023-03-05 08:40] VITALS: BP 118/79; PULSE 76
[2023-03-05] MEDS: PANTOPRAZOLE DR 40 MG TABLET PO (08:40)
[2023-03-05] MEDS: VERAPAMIL 80 MG TABLET 40 MG PO (08:40)
== END 2023-03-05 11:02 | disposition home or self-care (01) | DRG 420 ==
LOC: ED 23:07 → ICU 03-02 07:15 → AC 03-02 11:31 → ICU 03-02 11:31
PROVIDERS: Internal Medicine; Admitting Provider Internal Medicine; Emergency Provider Emergency Medicine; PCP Physician Assistant; Referring Provider Emergency Medicine; Visit Provider Internal Medicine
DX: E11.10 Type 2 diabetes mellitus with ketoacidosis without coma (principal); N39.0 Urinary tract infection, site not specified; E03.9 Hypothyroidism, unspecified; I10 Essential (primary) hypertension; G43.909 Migraine, unspecified, not intractable, without status migrainosus; B96.89 Other specified bacterial agents as the cause of diseases classified elsewhere; Z79.4 Long term (current) use of insulin; Z79.84 Long term (current) use of oral hypoglycemic drugs; Z79.85 Long-term (current) use of injectable non-insulin antidiabetic drugs; Z87.891 Personal history of nicotine dependence; Z20.822 Contact with and (suspected) exposure to COVID-19
CPT/HCPCS: 36415; 71260; 74177; 80048; 80053; 81001; 81003; 81025; 82009; 82805; 82962; 83036; 83690; 84703; 85025; 85027; 87045; 87086; 87177; 87493; 87507; 87633; 87899; 93005; 96374; 96375; 99284; C9113; J0696; J1650; J2405; J2765; J3030; Q9967

== ENCOUNTER → 2023-05-04 09:55 | Outpatient (CLI) | payer OTHER, MEDICAID, SELFPAY ==
[2023-03-02 05:13] VITALS: BMI 40.5
--- NOTE | 2023-05-04 | DI.MG.S_ITS ---
BILATERAL DIGITAL SCREENING MAMMOGRAM 3D/2D WITH CAD: 05/04/2023 CLINICAL: Routine screening. Family history of breast cancer. Comparison is made to exams dated: 07/24/2020 mammogram - [facility], 01/22/2019 mammogram - [facility], and 07/16/2021 mammogram - [facility]. There are scattered areas of fibroglandular density in both breasts (category b / 25%-50% glandular tissue). Current study was also evaluated with a Computer Aided Detection (CAD) system. No significant masses, calcifications, or other findings are seen in either breast. There has been no significant interval change. IMPRESSION: NEGATIVE There is no mammographic evidence of malignancy. A 1 year screening mammogram is recommended. Based on the Tyrer Cuzick model (a risk assessment model) the patient's lifetime risk is 14.8% and her 10 year risk is 2.9%. According to the ACR, ACS, and NCCN guidelines, an annual breast MRI exam along with mammogram is recommended if the patient's lifetime risk is 20% or greater. This exam was interpreted at Station ID: [id number]. NOTE: For mammograms, a report in lay terms will be sent to the patient. Approximately 15% of breast malignancies will not be visualized mammographically. In the management of a palpable breast mass, a negative mammogram must not discourage biopsy of a clinically suspicious lesion. Electronically Signed By: Ney beltran/jason:05/04/2023 14:02:08 letter sent: Normal Exam ACR BI-RADS Category 1: Negative [id number]
== END ==
PROVIDERS: PCP Physician Assistant; Referring Provider Physician Assistant; Visit Provider Physician Assistant
DX: Z12.31 Encounter for screening mammogram for malignant neoplasm of breast (principal); Z80.3 Family history of malignant neoplasm of breast
CPT/HCPCS: 77063; 77067

== ENCOUNTER 2025-05-25 21:15 | Emergency (ER) | payer OTHER, SELFPAY ==
[2023-03-02 05:13] VITALS: BMI 40.5
[2025-05-25 21:30] VITALS: BP 105/66; PULSE 70; RESP 16; TEMP 37.2; O2SAT 97; BMI 33.7
[2025-05-25 23:34] VITALS: BP 137/100; PULSE 96; RESP 20; O2SAT 98
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
[2025-05-26] VITALS: PULSE 70; O2SAT 98
[2025-05-26] MEDS: ONDANSETRON 4 MG/2 ML INJ IV (00:05)
[2025-05-26] MEDS: DEXAMETHASONE 10 MG/ML VIAL IV (00:05)
[2025-05-26] MEDS: KETOROLAC 30 MG/ML VIAL 15 MG IV (00:05)
[2025-05-26 00:23] VITALS: BP 117/67; PULSE 78; O2SAT 96
[2025-05-26 00:30] VITALS: PULSE 77; O2SAT 97
[2025-05-26] MEDS: HYDROCODONE/ACET 5/325 PREPACK 1 BOTTLE MISC (02:17)
== END 2025-05-26 02:24 | disposition home or self-care (01) ==
PROVIDERS: Emergency Provider Emergency Medicine; PCP Family Medicine
DX: M54.32 Sciatica, left side (principal)
CPT/HCPCS: 74176; 96374; 96375; 96376; 99284; J1100; J1171; J1885; J2405

== ENCOUNTER → 2025-05-27 16:37 | Outpatient (CLI) | payer OTHER, SELFPAY ==
[2025-05-26 09:09] VITALS: BMI 40.5
--- NOTE | 2025-05-27 16:39 | DI.MRI.S_ITS ---
PROCEDURE: MR LUMBAR SPINE WO CON INDICATIONS: Acute abrupt onset pain and weakness TECHNIQUE: Noncontrast sagittal T1 spin echo and T2 fast echo, sagittal STIR, and T2 fast spin echo through the lumbar spine. In cases with scoliosis, additional coronal T2 fast spin echo may be performed. COMPARISON: None. FINDINGS: Image quality: Excellent. Alignment and Curvature: Mild straightening of the normal lumbar lordosis. Minimal dextrocurvature. Bone Marrow: Marrow is of normal overall signal. No acute vertebral body compression fractures. Spinal Cord: Conus medullaris terminates at the L1 level. Visualized cord demonstrates normal signal and size. Paraspinous Soft Tissues: No paravertebral masses. Bilateral peripelvic renal cysts. T12-L1: Normal appearance. L1-L2: Mild facet arthropathy. No central canal or neural foraminal stenosis. L2-L3: Disc desiccation and mild disc bulge asymmetric to the right. Small posterior annular tear. Facet arthropathy. Mild central canal stenosis. No neural foraminal stenosis. L3-L4: Disc desiccation diffuse disc bulge. Facet arthropathy and thickening of ligamentum flavum. Epidural lipomatosis. Mild central canal stenosis. Mild left and no right neural foraminal stenosis. L4-L5: Disc desiccation and mild height loss. Diffuse disc bulge with small superimposed central disc protrusion. Facet hypertrophy and thickening of ligamentum flavum. Epidural lipomatosis. Moderate to severe central canal stenosis. Mild bilateral neural foraminal stenosis. L5-S1: Disc desiccation and mild height loss. Diffuse disc bulge with superimposed central disc extrusion. Facet hypertrophy. Moderate central canal stenosis with lateral recess stenosis, more pronounced on the right with possible impingement the descending S1 nerve roots. Severe right and mild left neural foraminal stenosis. IMPRESSION: 1. Multilevel degenerative changes of the lumbar spine as described above. 2. Moderate to severe central canal stenosis at L4-5. Moderate central canal stenosis at L5-S1. 3. Severe right neural foraminal stenosis at L5-S1. Dictated by: Benjie Castillo M.D. on 05/27/2025 at 18:38 Approved by: Benjie Castillo M.D. on 05/27/2025 at 18:42
--- NOTE | 2025-05-27 16:39 | DI.MRI.S_ITS ---
PROCEDURE: MR PELVIS WO CON INDICATIONS: Acute abrupt onset pain and weakness TECHNIQUE: Coronal T1, coronal STIR, axial T1, axial STIR. COMPARISON: [facility], CT, CT CHEST ABD PEL W CON, 03/01/2023, 23:15. [facility], CT, CT ABDOMEN PELVIS WO CON, 05/25/2025, 23:58. FINDINGS: Image quality: Excellent. Uterus: Anteverted uterus. IUD centered in the endometrial cavity. Cervix is unremarkable. Adnexa: No significant ovarian cyst. No free fluid. Urinary system: Visualized portions of the bladder are unremarkable. Nodes and vessels: No pelvic or inguinal adenopathy by size criteria. Iliac vessels are normal in size. Bowel and peritoneum: No pathologic free pelvic fluid. Diverticulosis. Bones: Marrow demonstrates normal overall signal. No edema signal at the SI joints. IMPRESSION: No acute abnormality identified. Dictated by: Quincy Hinkle M.D. on 05/27/2025 at 20:14 Approved by: Quincy Hinkle M.D. on 05/27/2025 at 20:19
== END ==
LOC: MRI 16:39
PROVIDERS: PCP Family Medicine; Referring Provider Family Medicine; Visit Provider Family Medicine
DX: R29.898 Other symptoms and signs involving the musculoskeletal system (principal); M54.10 Radiculopathy, site unspecified; K57.30 Diverticulosis of large intestine without perforation or abscess without bleeding; Z97.5 Presence of (intrauterine) contraceptive device
CPT/HCPCS: 72148; 72195